=== PATIENT | female | born 1985 | race Caucasian/White ===

== ENCOUNTER → 2016-12-20 23:12 | Observation (INO) ==
--- NOTE | 2016-12-20 17:25 | OB/GYN History & Physical ---
Date of Encounter: 12/20/16 Time of Encounter: 17:17 Assessment and Plan (1) uterine contractions in third trimester, antepartum Current visit: Yes Status: Acute UC every 1.5-2.5 minutes on toco. Pt reports they are not painful but she feels the tightening. SVE -/-2. CBC stat, IV LR 1 liter bolus. Terbutaline 0.25mcg SQ now. Celestone 12mg IM now and will repeat in 24 hours. Continue to monitor. Will consider transfer to tertiary care center if cervical change noted. (2) 33 weeks gestation of Current visit: Yes Status: Acute (3) Polyhydramnios affecting in third trimester Current visit: Yes Status: Acute (4) Obesity Current visit: Yes Status: Acute Qualifiers: Obesity type: due to excess calories Obesity severity: non-morbid Qualified Code(s): E66.09 - Other obesity due to excess calories (5) Abnormal 1st trimester screen Current visit: Yes Status: Acute History of Present Illness Chief complaint: indeterminant baseline on NST HPI: Ms. Garrido is a 31 year old female presenting at 33w2d from office for indeterminate FHT baseline rate on NST. Upon arrival to triage the NST is reactive. However, frequent contractions are noted on toco and pt reports upper abdominal tightening with increasing frequency. She denies LOF or VB. Excellent FM. This has been complicated by abnormal first trimester screening as well as polyhydramnios. Cell free DNA test pending. Torch titres showed elevated toxoplasmosis IGG and elevated HSV IGG and IGM. Pt denies any s/sx infection. This has also been complicated by maternal obesity. Blood type O positive. HIV, Hepatitis B, Treponema, Chlamydia, and Gonorrhea are all negative. GBS unknown. Past Med Surg Social Fam HX - Past Medical History Medical history: no medical history Psychiatric history: no psych history - Past Surgical History Surgical History: other (umbillical hernia repair as child) - Social History Smoking Status: Never smoker Smokeless Tobacco Status: No Alcohol use: none Drug use: none - Family History Mother Living Status: Still Living Hx Family Endocrine Disorder: Yes Obstetrical History - Pregnancies : 4 Para: 0 Term: 0 : 0 Ab's: 3 Livin Medications and Allergies Ibuprofen [Motrin] 600 mg PO Q6HR PRN #30 tab 05/27/16 [Rx] PredniSONE 20 mg PO BID #10 tablet 08/15/16 [Rx] Amoxicillin/Clavulanate [Augmentin] 875 mg PO BIDWM #14 tablet 09/17/16 [Rx] Cephalexin [Keflex] 500 mg PO TID #30 capsule 09/23/16 [Rx] Allergies No Known Allergies Allergy (Verified 09/22/16 18:49) Review of System OB All systems PM: reviewed and no additional remarkable complaints except as stated Exam - Constitutional Constitutional: well developed, well nourished, mild distress, obese - HEENT HEENT: Mucus Membranes Moist - Lungs Respiratory exam: CTAB - Cardiovascular Cardiovascular exam: RRR, +S1, +S2 - Abdomen Abdomen: Present: gravid, non tender - Extremities Extremities exam: normal inspection - Cervix Dilation: 1 (1-2) Effacement: 70 Station: -2 - Anus/Rectum Anus/Rectum: Present: normal perianal skin Results All other labs normal. - VTE Reasons for not Prescribing Prophylaxis: Treatment not Indicated - Low risk for VTE
[2016-12-20 17:34] LABS: Basophils % 0.2 %; Eosinophils # 0.1 K/mcL (0.0-0.6); Eosinophils % 0.7 %; Hematocrit 37.3 % (35.3-44.9); Hemoglobin 12.6 g/dL (11.5-15.4); Immature Granulocytes % 0.3 % (0-4); Lymphocytes # 1.6 K/mcL (0.6-4.6); Lymphocytes % 15.4 %; Mean Corpuscular HGB Conc 33.8 g/dL (31.6-35.5); Mean Corpuscular Hemoglobin 29.5 pg (28.0-33.3); Mean Corpuscular Volume 87.4 fL (83.0-100.0); Mean Platelet Volume 11.5 fL (9.4-12.4); Monocytes # 0.5 K/mcL (0.0-1.3); Monocytes % 4.5 %; Neutrophils # 8.1 K/mcL (1.6-8.9); Platelet Count 162 K/mcL (140-400); Red Blood Count 4.27 M/mcL (3.82-4.97); Red Cell Distribution Width 12.6 % (11.5-14.5); Segmented Neutrophils % 78.9 %
[2016-12-20 19:50] LABS: Bilirubin,Urine Negative (Negative); Blood,Urine Negative (Negative); Clarity,Urine Clear (Clear); Color,Urine Yellow (Yellow); Glucose,Urine (UA) Normal (Normal); Ketones,Urine 40 mg/dL (Negative); Leukocyte Esterase,Urine Trace (Negative); Nitrite,Urine Negative (Negative); Protein,Urine Negative (Neg-Trace); Specific Gravity,Urine 1.005 (1.010-1.025); Urobilinogen,Urine Normal (Normal)
[2016-12-20 19:52] LABS: Bacteria,Urine None Seen per hpf (None-Few); Hyaline Casts,Urine None Seen per lpf (None-Few); WBC,Urine 0-3 per hpf (0-3)
[2016-12-20 20:10] LABS: RBC,Urine 0-3 per hpf (0-3); Squamous Epithelial Cell,Urine Few per lpf (None-Few)
[~2016-12-20 23:12] MED LIST: Ampicillin 2 GM in 0.9 % Sodium Chloride Mini Bag 100 ML IVPB ONE; Betamethasone Acet/SodPhos 6 MG/ML MDV IM SCH; Magnesium Sulfate 20 gm/500mL 20 GM/500 ML IV.SOLN IVC SCH; NIFEdipine 10 MG CAPSULE PO ONE; Ringers Solution, Lactated 1,000 ML IVC ONE; Ringers Solution, Lactated 1,000 ML IVC SCH; Ringers Solution, Lactated 1,000 ML ONE; Terbutaline 1 MG/ML VIAL SQ ONE
== END | disposition short-term general hospital (02) ==
LOC: 1NENULAB
PROVIDERS: ADMIT Obstetrics & Gynecology; ATTEND Obstetrics & Gynecology

== ENCOUNTER 2017-02-02 18:16 | Inpatient (IN) ==
[~2017-02-02 18:16] MED LIST changes: +*HR* Nalbuphine 20 MG/ML AMPUL IVP PRN; -Ampicillin 2 GM in 0.9 % Sodium Chloride Mini Bag 100 ML IVPB ONE; -Betamethasone Acet/SodPhos 6 MG/ML MDV IM SCH; +Famotidine 20 MG/2 ML VIAL IVP PRN; -Magnesium Sulfate 20 gm/500mL 20 GM/500 ML IV.SOLN IVC SCH; -NIFEdipine 10 MG CAPSULE PO ONE; +Naloxone 0.4 MG/ML INJ IVP PRN; +Ondansetron 4 MG/2 ML VIAL IVP PRN; -Ringers Solution, Lactated 1,000 ML IVC ONE; -Ringers Solution, Lactated 1,000 ML IVC SCH; -Ringers Solution, Lactated 1,000 ML ONE; -Terbutaline 1 MG/ML VIAL SQ ONE
--- NOTE | 2017-02-02 18:27 | OB/GYN History & Physical ---
Date of Encounter: 02/02/17 Time of Encounter: 18:18 Assessment and Plan (1) 39 weeks gestation of Current visit: Yes Status: Acute Admit to labor and delivery for labor Patient is grossly ruptured Patient is GBS negative Patient is O+ Patient may have nubain upon request Patient may have epidural upon request Anticipate vaginal delivery POC per consult with Dr Sanz. History of Present Illness Chief complaint: Contractions and leaking of fluid HPI: Ms. Garrido is a 31 year old female at 39 weeks and 4 days gestation that arrives to labor and delivery with complaints of contractions and leaking of fluid beginning at 1630. She states positive movement. She denies headache, vision changes, and epigastric pain. She has had adequate care. She is GBS negative and O+. She is rubella and varicella immune. The rest of serology is negative. She has a history of polyhydramnious with this , her most recent scan was completed on 01/15/17 with an JERSEY of 21 cm. The last EFW was 2734 grams at 34 weeks and 2 days. Past Med Surg Social Fam HX - Past Medical History Medical history: no medical history Psychiatric history: no psych history - Past Surgical History Surgical History: other (umbillical hernia repair as child) - Social History Smoking Status: Never smoker Smokeless Tobacco Status: No Alcohol use: none Drug use: none - Family History Mother Living Status: Still Living Hx Family Endocrine Disorder: Yes Obstetrical History - Pregnancies : 4 Para: 0 Term: 0 : 0 Ab's: 3 Livin Medications and Allergies Ibuprofen [Motrin] 600 mg PO Q6HR PRN #30 tab 05/27/16 [Rx] predniSONE [PredniSONE] 20 mg PO BID #10 tablet 08/15/16 [Rx] Amoxicillin/Clavulanate [Augmentin] 875 mg PO BIDWM #14 tablet 09/17/16 [Rx] cephALEXin [Keflex] 500 mg PO TID #30 capsule 09/23/16 [Rx] Allergies No Known Allergies Allergy (Verified 09/22/16 18:49) Review of System OB All systems PM: reviewed and no additional remarkable complaints except as stated Exam - Constitutional Constitutional: well developed, well nourished, no acute distress, average body habitus - HEENT HEENT: Normocephaly, Mucus Membranes Moist - Neck Neck exam: full ROM - Lungs Respiratory exam: CTAB - Cardiovascular Cardiovascular exam: RRR, +S1, +S2 - Abdomen Abdomen: Present: bowel sounds normal, gravid, non tender - Extremities Extremities exam: normal capillary refill, normal inspection, radial pulses palpable and symetrical Deep Tendon Reflex Grade: 2+ Normal - Vulva Vulva: bilateral: normal - Vagina Vagina: Present: normal moisture - Cervix Dilation: 5 (Per RN exam) Effacement: 100 (Per RN exam) Station: 0 - Uterus Uterus exam: Present: normal size, normal contour - Anus/Rectum Anus/Rectum: Present: normal perianal skin Results All other labs normal. - VTE Reasons for not Prescribing Prophylaxis: Treatment not Indicated - Low risk for VTE
[2017-02-02] MEDS ORDERED: Ringers Solution, Lactated 1,000 ML IVC SCH (18:30)
[2017-02-02 18:46] LABS: Basophils % 0.1 %; Eosinophils # 0.1 K/mcL (0.0-0.6); Eosinophils % 0.5 %; Hematocrit 38.9 % (35.3-44.9); Hemoglobin 12.8 g/dL (11.5-15.4); Immature Granulocytes % 0.4 % (0-4); Lymphocytes # 2.1 K/mcL (0.6-4.6); Lymphocytes % 19.6 %; Mean Corpuscular HGB Conc 32.9 g/dL (31.6-35.5); Mean Corpuscular Hemoglobin 27.7 pg (28.0-33.3); Mean Corpuscular Volume 84.2 fL (83.0-100.0); Mean Platelet Volume 11.4 fL (9.4-12.4); Monocytes # 0.6 K/mcL (0.0-1.3); Monocytes % 5.4 %; Neutrophils # 7.9 K/mcL (1.6-8.9); Platelet Count 172 K/mcL (140-400); Red Blood Count 4.62 M/mcL (3.82-4.97); Red Cell Distribution Width 12.6 % (11.5-14.5)
[2017-02-02] MEDS ORDERED: *HR* FentaNYL (PF) 100 MCG/2 ML VIAL ONE (19:02)
[2017-02-02] MEDS ORDERED: Epidural Premix (fent/bupiv) 110 ML EP ONE (19:03)
[2017-02-02] MEDS ORDERED: Bupivacaine-MPF 0.25% 10 ML VIAL ONE (19:03)
--- NOTE | 2017-02-02 19:58 | Anesthesia Evaluation PreOp ---
Date of Encounter: 02/02/17 Time of Encounter: 19:56 - Past History Planned Operation: GEOVANNA Cardiac History: Denies any Significant Hx Pulmonary History: Denies Any Significant HX RN UROLOGY History: Denies Any Significant HX Other Medical History: Denies Any Significant HX Anesthesia History: No Prior Anesthetic Complications (never had any procedure requiring NA; denies personal or family h/o general anesthesia complications), Past Anesthesia : Yes Test: Positive Alcohol Use: none Drug use: none Medications and Allergies Vit Calc,Iron,Folic [ Vitamins] 1 tab PO DAILY 02/02/17 [ History] Allergies No Known Allergies Allergy (Verified 09/22/16 18:49) - Meds/Allergy Pre-op Review Medications Reviewed: Yes Allergies Reviewed: Yes Beta Blockers on Current Med List: No Anesthesia Results - Labs 02/02/17 18:26 Anesthesia Exam 130/89, hr71, rr19 O2 Sat Height 1.73 m Weight 110.677 kg Weight 244 kg NPO (# of Hours): solids >3 hours Pain Scale: 8 Pain Scale Used: Numeric (1 - 10) - HEENT Pupil (Motor): Pupils equal Mallampati: II Teeth: Edentulous, Poor dentition Oral Opening: Greater than 3 - RN UROLOGY LOC: Oriented RN UROLOGY Motor: Normal RUE, Normal LUE, Normal RLE, Normal LLE, Normal Face RN UROLOGY Sensory: Normal: RUE, LUE, RLE, LLE, Face - Cardiac Rhythm: Regular Murmur: None - Pulmonary Breath Sounds: bilateral Clear Respiratory Effort: Symmetrical Anesthesia Assess/Plan ASA Score: 2 Modified Franklin Scale for Level of Consciousness: Anixous, agitated or restless Anesthetic Plan: Regional Autologous Blood: No Monitoring Plan: Standard Monitors Recovery Plan: Other
[2017-02-02] MEDS ORDERED: Bupivacaine-MPF 0.25% 10 ML VIAL EP ONE (20:00)
[2017-02-02] MEDS ORDERED: Epidural Premix (fent/bupiv) 110 ML EP SCH (20:00)
[2017-02-02] MEDS ORDERED: *HR* FentaNYL (PF) 100 MCG/2 ML VIAL EP ONE (20:00)
--- NOTE | 2017-02-02 20:00 | Anesthesia Procedures ---
Date of Encounter: 02/02/17 Time of Encounter: 19:58 Procedures: Anesthesia - Epidural/Spinal Patient ID/Chart reviewed: Yes Patient examined: Yes OB Eval: Gestational age: 39 weeks 4 days OB Eval: : 4 OB Eval: Hx Para: 0 OB Eval: Contractions: Non-stressed pattern Consent Obtained: Yes Supplemental Oxygen: None/Room Air Site Prep: Aseptic Technique, Sterile prep and drape, Povidone-Iodine 1% Patient position: upright Local Anesthetic: Lidocaine 1% Amount of Local Anesthetic used: 3 Touhy Needle Gauge: 18 Touhy Needle Depth (cm): 5 Catheter Depth at Skin (cm): 11 Test Dose (1.5% Lido + Epi): Volume given (mls): 5 Test Dose Result: Negative Loading Dose: 0.25% Marcaine (mls): 5 Loading Dose: Fentanyl (mcg): 100 Loading Dose Administered: Thru Catheter Infusion Med: 0.125% Bupivacaine w/ 2 mcg/ml Fentanyl Infusion Rate (mls/hr): 14 (w/ demand bolus of 4mL q20min PRN) Catheter Secured in Place: Tegaderm, Tape Interspace Used: L3-L4 Loss of Resistance (SOHA): Yes Blood: No CSF: No Paresthesia: No Vitals + FHT's: please see Maru COSTELLO's electronic documentation
[2017-02-02] MEDS ORDERED: Oxytocin 20 units/ LR 1000 mL 20 UNIT/1,000 ML BAG IVC ONE ×2 (20:13→23:19)
[2017-02-02] MEDS ORDERED: Lidocaine 1% 20 ML MDV ONE (20:18)
--- NOTE | 2017-02-02 22:44 | OB/GYN Procedure Note ---
Delivery - Delivery Date: 02/02/17 Provider: Javon Sanz Intrapartum events: other(please specify) (category 3 strip prolonged bradycardia) Delivery induction: none Delivery monitor: external FHT, external uterine Anesthesia: local, epidural Estimated Blood Loss: 300 - Infant (s) Infant A Infant Delivery Date: 02/02/17 Delivery Time: 21:04 Presentation: vertex Position: RICKEY Route of delivery: vacuum extraction Gender: Male Viability: Viable Pounds: 8 Ounces: 5 Weight Gram: 3.78 kg at 1 minute: 8 at 5 mins: 8 Shoulder Dystocia: not encountered Specimens collected: cord blood Placenta: spontaneous, uterine exploration (Retained membranes noted removed with ring forceps) - Repair Episiotomy: midline (With third-degree extension) - Complications Delivery complications: none Delivery comments: Patient is a 31-year-old 4 para 0030 at 39-4/7 weeks who presented to labor and delivery in active labor. Patient is a patient of the midwives and was being managed by the midwives. Patient has been tenderness rupture membranes this afternoon on arrival to labor and delivery she was 5 cm patient progressed appropriately and became complete. heart tones dropped into the 60s and 70s with very slow return to baseline. The finishing range supervisor was at bedside at this time having the patient push but tones were not back up. I was asked to attend the delivery for vacuum assisted delivery. Tones remained in the 80s patient was placed in the lithotomy position a Kiwi vacuum was applied and pressure was increased to 500 mmHg and we were able to deliver the . The vacuum was applied 3 times for approximately 15 seconds each time with to involuntary pop offs. A midline episiotomy had been cut to help expedite delivery. We did deliver a viable male infant in right occiput anterior presentation at 210. There was no nuchal cord, no meconium, the infant was bulb suctioned on the abdomen. Apgars were 8 at 1 minute 8 at 5 minutes weight was 8 lbs. 5 oz. Patient's placenta was delivered spontaneously however membranes during the delivery of the disc of the placenta and membranes were removed using a ring forcep. Patient did have the midline episiotomy which extended to a third-degree. The episiotomy was closed with 3- 0 Vicryl and 2-0 Vicryl in the usual fashion. The external skin incision had extended down to the anal verge this skin edge was closed using a 4-0 Vicryl and a second instrument. Rectal exam had been performed and the patient did not extend into the anus and the muscle was reapproximated appropriately. Practical Nursing Teacher was Dr. Sanz anesthesia was epidural and estimated blood loss was 300 mL. Cervix and vagina was then visualized intact. All needles lap sponge counts were correct 3 she will be observed 2 hours before being taken floor. - Disposition Mom disposition: stable in LDR [place] disposition: stable in LDR
[2017-02-02] MEDS ORDERED: *HR* HYDROcodone/Acet 5/325 mg TABLET PO PRN (23:43)
[2017-02-02] MEDS ORDERED: Acetaminophen 325 MG TABLET PO PRN (23:43)
[2017-02-02] MEDS ORDERED: Measles/Mumps/Rubella Vacc 0.5 ML VIAL SQ PRN (23:43)
[2017-02-02] MEDS ORDERED: Oxytocin 20 units/ LR 1000 mL 20 UNIT/1,000 ML BAG IVC SCH (23:43)
[2017-02-03 07:18] LABS: Basophils % 0.1 %; Eosinophils # 0.1 K/mcL (0.0-0.6); Eosinophils % 0.5 %; Hematocrit 27.9 % (35.3-44.9); Immature Granulocytes % 0.3 % (0-4); Lymphocytes # 1.7 K/mcL (0.6-4.6); Lymphocytes % 13.2 %; Mean Corpuscular HGB Conc 33.7 g/dL (31.6-35.5); Mean Corpuscular Hemoglobin 28.7 pg (28.0-33.3); Mean Corpuscular Volume 85.3 fL (83.0-100.0); Mean Platelet Volume 12.2 fL (9.4-12.4); Monocytes # 0.6 K/mcL (0.0-1.3); Monocytes % 4.8 %; Neutrophils # 10.7 K/mcL (1.6-8.9); Platelet Count 126 K/mcL (140-400); Red Blood Count 3.27 M/mcL (3.82-4.97); Red Cell Distribution Width 12.8 % (11.5-14.5); Segmented Neutrophils % 81.1 %
[2017-02-03 07:22] LABS: Hemoglobin 9.4 g/dL (11.5-15.4)
--- NOTE | 2017-02-03 08:18 | OB/GYN Progress Note ---
Date of Encounter: 02/03/17 Time of Encounter: 08:15 - Assessment and Plan (1) Vaginal delivery Current Visit: Yes Status: Acute Continue routine management Pain is well controlled Anticipate discharge home tomorrow Follow up in office in 6 weeks and prn (2) Anemia complicating puerperium Current Visit: Yes Status: Acute Hgb dropped from 12.8 to 9.4 after delivery Ferrous sulfate daily Discharge home with ferrous sulfate Patient asymptomatic (3) Breast feeding status of mother Current Visit: Yes Status: Acute Patient doing well Difficulty with latch on right side seeing patient for assistance. (4) 39 weeks gestation of Current Visit: Yes Status: Resolved Admit to labor and delivery for labor Patient is grossly ruptured Patient is GBS negative Patient is O+ Patient may have nubain upon request Patient may have epidural upon request Anticipate vaginal delivery POC per consult with Dr Sanz. Subjective - Subjective Principal diagnosis: Spontaneous labor - delivered vaginally Interval history: Patient doing well post delivery day 1 Pain is well controlled Bleeding is light; no clots No difficulty urinating; passing flatus Patient is . Discharge home tomorrow Patient reports: appetite normal, voiding normally, pain well controlled, ambulating normally : doing well Objective - Latest Vital Signs Latest vital signs: Vital Signs Temp Pulse Resp BP Pulse Ox 02/03/17 07:30 98.4 F 89 16 125/84 97 02/03/17 02:40 98.9 F 78 16 128/70 97 02/03/17 01:40 98.6 F 83 20 132/85 99 02/03/17 00:40 97.5 F L 68 16 131/87 99 Intake and Output 02/02/17 02/03/17 02/03/17 23:59 07:59 15:59 Intake Total 200 / 200 Output Total 300 / 300 Balance -100 / -100 Intake: Oral 200 / 200 Output: Urine 300 / 300 Other: Weight 110.677 kg 106.141 kg Patient Weight 02/03/17 23:59 Weight 106.141 kg - Exam Lungs: bilateral: normal Chest: Normal S1, Normal S2 Extremities: Present: normal Abdomen: Present: normal appearance, soft. Absent: gravid Uterus: Present: normal, firm Uterus Position: At Umbilicus, Midline - Labs Labs: Laboratory Results - last 24 hr 02/02/17 02/03/17 18:26 06:38 WBC 10.7 13.2 H RBC 4.62 3.27 L Hgb 12.8 9.4 L D Hct 38.9 27.9 L MCV 84.2 85.3 MCH 27.7 L 28.7 MCHC 32.9 33.7 RDW 12.6 12.8 Plt Count 172 126 L MPV 11.4 12.2 Immature Gran % 0.4 0.3 Seg Neutrophils % 74.0 81.1 Lymphocytes % 19.6 13.2 Monocytes % 5.4 4.8 Eosinophils % 0.5 0.5 Basophils % 0.1 0.1 Neutrophils # 7.9 10.7 H Lymphocytes # 2.1 1.7 Monocytes # 0.6 0.6 Eosinophils # 0.1 0.1 Basophils # 0.0 0.0
[2017-02-03] MEDS: Prenatal Vit/FA 1 EACH TABLET PO SCH (08:29)
[2017-02-03] MEDS ORDERED: Prenatal Vit/FA 1 EACH TABLET PO SCH (09:00)
[2017-02-03] MEDS: Ibuprofen 600 MG TABLET PO PRN (21:35)
[2017-02-04 07:38] VITALS: BP 134/87
--- NOTE | 2017-02-04 08:37 | Discharge Summary ---
Date of Encounter: 02/04/17 Time of Encounter: 08:34 - Discharge Diagnosis (1) Breast feeding status of mother Priority: Secondary Status: Acute (2) Vaginal delivery Priority: Primary Status: Acute Comments: Pt meeting milestones. Lochia light-moderate. Ambulating normally. Tolerating regular diet. Voiding spontaneously. (3) Obesity Priority: Secondary Status: Acute Qualifiers: Obesity type: due to excess calories Obesity severity: non-morbid Qualified Code(s): E66.09 - Other obesity due to excess calories (4) Anemia complicating puerperium Priority: Secondary Status: Acute - Discharge Medications Prescriptions: Ibuprofen [Motrin] 600 mg PO Q6HR PRN #60 tablet PRN Reason: Cramping Breast Pump [BREAST PUMP] 1 each .ROUTE AD #1 each Docusate [Colace] 100 mg PO BID #60 capsule Ferrous Sulfate 325 mg PO DAILY #30 tablet Home Medications: Vit Calc,Iron,Folic [ Vitamins] 1 tab PO DAILY 02/02/17 [ History] Breast Pump [BREAST PUMP] 1 each .ROUTE AD #1 each 02/03/17 [Rx] Docusate [Colace] 100 mg PO BID #60 capsule 02/04/17 [Rx] Ferrous Sulfate 325 mg PO DAILY #30 tablet 02/04/17 [Rx] Ibuprofen [Motrin] 600 mg PO Q6HR PRN #60 tablet 02/04/17 [Rx] Allergies/Adverse Reactions: Allergies No Known Allergies Allergy (Verified 09/22/16 18:49) Data Procedures and tests throughout hospitalization: Laboratory Tests 02/02/17 02/03/17 18:26 06:38 WBC 10.7 13.2 H RBC 4.62 3.27 L Hgb 12.8 9.4 L D Hct 38.9 27.9 L MCV 84.2 85.3 MCH 27.7 L 28.7 MCHC 32.9 33.7 RDW 12.6 12.8 Plt Count 172 126 L MPV 11.4 12.2 Immature Gran % 0.4 0.3 Seg Neutrophils % 74.0 81.1 Lymphocytes % 19.6 13.2 Monocytes % 5.4 4.8 Eosinophils % 0.5 0.5 Basophils % 0.1 0.1 Neutrophils # 7.9 10.7 H Lymphocytes # 2.1 1.7 Monocytes # 0.6 0.6 Eosinophils # 0.1 0.1 Basophils # 0.0 0.0 Date of admission: 02/02/17 18:16 Primary care physician: PCP NO Consults: 02/02/17 23:43 Consult to Baked And Graphite Inspector [CONS] Routine Comment: Vaginal delivery, consult needed Consult to Machine Cloth Trimmer [CONS] Routine Reason for SW Consult: social issues Discharging clinician: Mary Lou Butterfield Anticipated date of discharge: 02/04/17 - Patient Status Disposition: Home, Self-Care Condition: Good Functional capacity at discharge: independent ambulation Overall status at discharge: patient is progressing back to baseline - Discharge Instructions Follow Up With: NO,PCP [Primary Care Provider] - Marlin Grey CNM [Advanced Practice Nurse] - - Diet and Activity Activity: increase activity as tolerated Diet: regular diet Hospital Course Reason for admission: active labor Delivery: vacuum extraction Episiotomy: midline (With third-degree extension) Laceration: 3rd degree Other procedures: none complications: none Discharge diagnosis: IUP at term delivered baby: male Hospital course: - Delivery Date: 02/02/17 Provider: Javon Sanz Intrapartum events: other(please specify) (category 3 strip prolonged bradycardia) Delivery induction: none Delivery monitor: external FHT, external uterine Anesthesia: local, epidural Estimated Blood Loss: 300 - Infant (s) Infant A Infant Delivery Date: 02/02/17 Infant Delivery Time: 21:04 Presentation: vertex Position: RICKEY Route of delivery: vacuum extraction Gender: Male Viability: Viable Pounds: 8 Ounces: 5 Weight Gram: 3.78 kg at 1 minute: 8 at 5 mins: 8 Shoulder Dystocia: not encountered Specimens collected: cord blood Placenta: spontaneous, uterine exploration (Retained membranes noted removed with ring forceps) - Repair Episiotomy: midline (With third-degree extension) - Complications Delivery complications: none Delivery comments: Patient is a 31-year-old 4 para 0030 at 39-4/7 weeks who presented to labor and delivery in active labor. Patient is a patient of the midwives and was being managed by the midwives. heart tones dropped into the 60s and 70s with very slow return to baseline. VAVD was accomplished by Dr. Sanz. There was no nuchal cord, no meconium, the was bulb suctioned on the abdomen. Apgars were 8 at 1 minute 8 at 5 minutes weight was 8 lbs. 5 oz. Patient's placenta was delivered spontaneously however membranes during the delivery of the disc of the placenta and membranes were removed using a ring forcep. Patient did have the midline episiotomy which extended to a third-degree. - Disposition Mom disposition: home PPD#2 [place] disposition: home with mother , Time Attestation: Total time spent providing and/or coordinating discharge services: Time Spent: Less than 30 minutes Exam - Constitutional Vitals: Temp Pulse Resp BP Pulse Ox 98.1 F 85 16 134/87 97 02/04/17 07:37 02/04/17 07:37 02/04/17 07:37 02/04/17 07:37 02/03/17 20:15 General appearance IM: A&O X 3, no acute distress, obese - Respiratory Respiratory exam: Present: CTAB - Cardiovascular Cardiovascular exam IM: Present: RRR, +S1, +S2 - GI/Abdominal GI/Abdominal exam IM: soft - Rectal Rectal exam: deferred - Uterine Tone: Firm - Extremities Exam Extremities exam IM: Present: pedal edema (mild bilaterally, no erythema or warmth) - Neurological Exam Neurological exam: normal gait, oriented X3 - Psychiatric Additional comments: reports good mood
[2017-02-04] MEDS: Prenatal Vit/FA 1 EACH TABLET PO SCH (09:28)
[2017-02-04] MEDS: Ibuprofen 600 MG TABLET PO PRN (09:28)
== END 2017-02-04 11:25 | disposition home or self-care (01) | DRG 542 ==
LOC: 1NENULAB → 1NENUOBS 23:42
PROVIDERS: ADMIT Obstetrics & Gynecology; ATTEND Obstetrics & Gynecology